=== PATIENT | male | born 1960 | race Caucasian/White ===

== ENCOUNTER 2023-07-19 23:15 | Inpatient (IN) | payer BC, SELFPAY ==
[2023-07-19 20:46] VITALS: BMI 34.6
[2023-07-19 20:47] VITALS: BP 181/127
[2023-07-19 20:58] VITALS: BP 158/129
[2023-07-19 21:25] LABS: % Basophils 0.7 % (0-2); % Immature Granulocytes 0.3 % (0-0.5); % Lymphocytes 6.3 % (20.5-51.1); % Monocytes 6.7 % (1.7-9.3); Absolute Basophils 0.1 10^3/uL (0-0.2); Absolute Eosinophils 0.2 10^3/uL (0-0.7); Absolute Lymphocytes 0.6 10^3/uL (1.2-3.4); Absolute Monocytes 0.7 10^3/uL (0.1-0.6); Absolute Neutrophils 8.2 10^3/uL (1.4-6.5); Hemoglobin 15.5 g/dL (13.0-18.0); Mean Corp Hgb Conc. 35.2 g/dL (33.0-37.0); Mean Platelet Volume 10.4 fL (7.4-10.4); Nucleated Red Blood Cells % 0 % (-); Platelet Count 203 10^3/uL (130-400); Red Cell Dist. Width 13.1 % (11.5-14.5); White Blood Cell Count 9.7 10^3/uL (4.8-10.8)
[2023-07-19] MEDS: ZOFRAN 4 MG IV (21:27)
[2023-07-19] MEDS: NSS 1000 IV (21:27)
[2023-07-19] MEDS: DILAUDID 1 MG IV (21:28)
[2023-07-19 21:44] LABS: Urine Albumin Trace (Neg - Trace); Urine Bilirubin Negative (Negative); Urine Character Clear (Clear); Urine Color Yellow; Urine Glucose Negative (Negative); Urine Ketone 1+ (Negative); Urine Leukocyte Negative (Negative); Urine Nitrite Negative (Negative); Urine Occult Blood 4+ (Negative); Urine Urobilinogen Negative (Neg - 1+)
[2023-07-19 22:00] VITALS: BP 183/107
[2023-07-19 22:02] LABS: Urine Squamous Cell 0-2 /LPF (Few)
[2023-07-19 22:03] LABS: Urine Red Blood Cell 0-2 /HPF (0-2); Urine White Cell 0-2 /HPF (0-5)
[2023-07-19 22:08] LABS: ALT (SGPT) 32 U/L (0-50); AST (SGOT) 35 U/L (17-59); Albumin 4.8 g/dl (3.5-5.0); Alkaline Phosphatase 64 U/L (38-126); Blood Urea Nitrogen 19 mg/dl (9-20); Calcium 9.9 mg/dl (8.4-10.2); Carbon Dioxide 25 mmol/L (22-30); Chloride 104 mmol/L (98-107); Estimated Creatinine Clearance 77 ml/min; Glucose 104 mg/dl (70-99); Potassium 4.5 mmol/L (3.5-5.1); Sodium 138 mmol/L (135-145); Total Bilirubin 1.4 mg/dl (0.2-1.3); Total Protein 7.4 g/dl (6.3-8.2); eGFR > 60.00
--- NOTE | 2023-07-19 22:22 | ED.GENMED ---
History of Present Illness
General
Chief Complaint: Abdominal Pain
Source: patient and spouse
Exam Limitations: none
Time Seen by Provider: 07/19/23 21:09
Nursing documentation reviewed up to this point in time: agreed with
Travel History
Have you had any contact with someone who has COVID-19?: No
Do you have any symptoms of coronavirus? Fever > 100 degrees, chills, cough, shortness of breath, sore throat, loss of taste or smell, muscle aches, or headache?: No
History of Present Illness
History of Present Illness:
63-year-old male with a past medical history of A-fib on Coumadin who presents to the emergency department for evaluation of abdominal/flank pain. Patient reports onset of symptoms this afternoon at around 4 PM and they have been constant since
that time. He reports a rather intense sharp pain in the left flank radiates towards the left lower abdomen. No clear triggering or relieving factors noted. He reports associated nausea but no vomiting. No change in his bowel movements�last
bowel movement was earlier today and formed, normal. He has not had any dysuria, hematuria, change in urinary frequency. He has not had any fevers or chills. He denies having had similar symptoms in the past. He had prior surgery for inguinal
hernia no other abdominal surgeries noted. Patient says that he is a lifetime non-smoker.
Past History
Past History
ED Past Medical History: Arrthythmia (afib for 10 yrs )
ED Past Surgical History: Other (2 ablations )
Social History
Tobacco: Non-smoker
Personal:
Living: with family
Employment: Employed
Review of Systems
Review of Systems
All Other Systems: ROS reviewed and negative except as documented in HPI and ROS
Constitutional: Denies fever or chills
Respiratory: Denies trouble breathing
Cardiac: Denies chest pain
ABD/GI: Reports abdominal pain and nausea; Denies vomiting, diarrhea or constipated
: Denies dysuria, frequency or flank pain
Musculoskeletal: Denies neck pain or back pain
Neurological: Denies headache, weakness or numbness
Phy Exam
Physical Exam
Physical Exam:
General: Awake, alert, oriented x3; appears uncomfortable
Head: Normocephalic, atraumatic
Eyes: Conjunctiva normal, sclera anicteric
Throat: Airway intact, handling secretions
Neck: Trachea midline, supple without meningismus
Lungs: Clear to auscultation bilaterally, no wheezing, rales, rhonchi
Heart: Regular rate and rhythm, no murmurs, gallops, or rubs
Abd: Soft, non distended, tender to palpation left lower quadrant with no palpable masses
Neuro: Cranial nerves grossly intact, speech fluid
Skin: no rash
Extremities: No edema in extremities, equal pulses in all extremities
Scores
Heart Failure Risk
Heart Failure Risk Score: Not Applicable
Heart Score for Chest Pain Patients
STEMI patient?: Not applicable
Withdrawal Assessment of Alcohol
Withdrawal Assessment Completed?: Not applicable
Course
Orders/Labs/Results
Orders:
Orders
07/19/23 21:10
CT Abd/pel Without Iv Or Oral Urgent
Comment:
Reason For Exam: left flank pain
07/19/23 21:11
0.9% Sodium Chloride 1000 ml [Nss] 1,000 ml IV BOLUS
HYDROmorphone [Dilaudid] 1 mg IV NOW STA
Ondansetron Injectable [Zofran] 4 mg IV NOW STA
07/19/23 21:21
Complete Blood Count/With Diff Urgent
Comprehensive Metabolic Panel Urgent
07/19/23 21:28
Urinalysis Reflex To Culture Urgent
Date Specimen was Collected: 07/19/23
Time Specimen was Collected: 21:25
Urine Microscopic Reflex Cult Urgent
07/19/23 22:16
Prothrombin Time Urgent
Abnormal Lab Results
07/19/23 07/19/23
21:21 21:28
Absolute Neuts (auto) 8.2 H 10^3/uL
(1.4-6.5)
Absolute Lymphs (auto) 0.6 L 10^3/uL
(1.2-3.4)
Absolute Monos (auto) 0.7 H 10^3/uL
(0.1-0.6)
Neutrophils % 84.0 H %
(42.2-75.2)
Lymphocytes % 6.3 L %
(20.5-51.1)
Glucose 104 H mg/dl
(70-99)
Total Bilirubin 1.4 H mg/dl
(0.2-1.3)
Urine Ketones 1+ A
(Negative)
Ur Occult Blood Reflex 4+ A
(Negative)
07/19/23 21:21
07/19/23 21:21
Vital Signs
Initial and Last Documented VS:
Initial Vital Signs
Temp Pulse Resp BP Pulse Ox
36.6 C 98 15 181/127 95
07/19/23 20:47 07/19/23 20:47 07/19/23 20:47 07/19/23 20:47 07/19/23 20:47
Last Documented Vital Signs
Temp Pulse Resp BP Pulse Ox
36.6 C 98 15 158/129 95
07/19/23 20:47 07/19/23 20:47 07/19/23 20:47 07/19/23 20:58 07/19/23 21:33
MDM/Problems Addressed
Differential Diagnosis Includes:
Diverticulitis, nephrolithiasis, UTI, constipation, AAA less likely in a non-smoker
MDM/Problems Addressed:
63-year-old male with history as documented presents for evaluation of abdominal/flank pain for the past few hours. Hypertensive but otherwise normal vitals. Exam as above. Plan to place an IV check labs including CBC and CMP, urinalysis. Will
check an INR. Will send for CT of the abdomen pelvis with concern for nephrolithiasis given clinical history. Will treat pain and nausea provide fluids. Monitor closely reassess after the above.
Labs reviewed: CBC unremarkable, CMP no clinically significant abnormalities�notably except creatinine. His urinalysis is negative for infection but does have positive blood. CT of the abdomen pelvis positive for nephrolithiasis max diameter 1.1
cm in the distal left ureter with hydronephrosis. Case discussed with urology. Will plan to admit to hospitalist service, urology on consult. Discussed with hospitalist for admission.
*Radiology
Radiology exam reviewed: radiology read reviewed
*Pulse Oximetry
Patient hypoxic: no
*Critical Care Note
Total Time (30-74mins, 75-104mins- exclusive of procedures): Not Applicable
Data Reviewed
Review of Other/Old Records Reveals: Labs and Records
Source: patient and spouse
Patient Management
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
Escalation/DeEscalation of care consider admission/obs:
Admission indicated
ED Attending Note
-
Portions of this chart may have been created with voice recognition software.� Occasional wrong word or��sound alike� substitutions may have occurred due to the inherent limitations of voice recognition software.
Discharge Plan
Departure
Patient Disposition: Admit
Date of Disposition: 07/19/23
Time of Disposition: 22:27
Admit to doctor: Paola
Presentation/result/management discussed w/ accepting MD/DO: Hospitalist
Discharge Problem:
Left nephrolithiasis
Prescriptions:
No Action
warfarin [Jantoven] 5 MG tablet
7.5 mg PO SUTUTHFRSA
B-complex with vitamin C 1 EACH tablet
1 tab PO DAILY
carvedilol 25 mg Tablet
25 mg PO BID
tamsulosin 0.4 mg Capsule
0.4 mg PO DAILY
allopurinol 300 mg Tablet
300 mg PO DAILY
finasteride 5 mg Tablet
5 mg PO DAILY
Referrals:
Calli Mejía MD [Family Provider] -
Interventions
Interventions:
*Risk Screen - Suicide Last Done: 07/19/23 20:47
*General Assessment Last Done: 07/19/23 20:47
*Neglect/Abuse Screening Last Done: 07/19/23 20:47
BX-Yqocmb-Fopsfdjkbf Assessment Last Done: 07/19/23 21:08
Discharge Date and Time
Print Language: SETSWANA
--- NOTE | 2023-07-19 22:44 | HPS.HSE ---
Family Physician
-
Family Physician: Calli Mejía
Chief Complaint
-
Abdominal pain
History of Present Illness
This is a 63-year-old male with past medical history significant for atrial fibrillation on anticoagulation with Coumadin, BPH/prostate CA on finasteride and tamsulosin, gout, hypertension, who presents to the emergency department with left-sided
back pain that started 4 hours prior to presentation.
Patient reports sudden onset of crampy left-sided pain that radiated from the left back to the left lower quadrant and then ultimately to the left groin. Appears to be worse with urination. He denies any hematuria. He denies any nausea or
vomiting. Denies fevers or chills. Patient denies any previous history of kidney stones or family history of kidney stones.
On arrival in the emergency department he was afebrile, hypertensive but otherwise hemodynamically stable and in mild distress secondary to his discomfort. Oxygen saturation was 95% on room air. Is CBC was unremarkable with a normal white count
hemoglobin and platelet count which were also normal creatinine of secondary change from baseline. A CT of the abdomen pelvis revealed an obstructing 1.1 cm stone in the left kidney without hydronephrosis. Urology consulted.
Medical History
Past Medical History
Past Medical History: Reports HTN
Additional Past Medical History:
Gout
Atrial fibrillation
BPH
DOE on CPAP
Past Surgical History: Reports None
Social History
Tobacco: Non-smoker
Alcohol: Occasional
Drug: None
Personal:
Living: With Family
Employment: Employed
Family History
Family History: Not pertinent
Allergies / Home Medications
Allergies reflects when Allergies were last updated in [facility].
Home Medications with original date entered in [facility]
Allergy/Medication List:
Allergies
Allergy/AdvReac Type Severity Reaction Status Date / Time
NKA - No Known Allergies Allergy Unknown Uncoded 10/13/15 14:36
Home Medications
warfarin 5 mg tablet (Jantoven) 7.5 mg PO SUTUTHFRSA 09/07/13
B-complex with vitamin C 1 tab PO DAILY 09/08/13
allopurinol 300 mg tablet 300 mg PO DAILY 07/19/23
carvedilol 25 mg tablet 25 mg PO BID 07/19/23
finasteride 5 mg tablet 5 mg PO DAILY 07/19/23
tamsulosin 0.4 mg capsule 0.4 mg PO DAILY 07/19/23
Review of Systems
-
History Source: Patient
Constitutional: Reports No Symptoms
EENT: Reports No Symptoms
Respiratory: Reports No Symptoms
Cardiac: Reports No Symptoms
Abdomen/GI: Reports Abdominal Pain
: Reports Dysuria and Flank Pain
Musculoskeletal: Reports No Symptoms
Skin: Reports No Symptoms
Neurological: Reports No Symptoms
Endocrine: Reports No Symptoms
Hematologic/Lymphatic: Reports No Symptoms
Psych: Reports No Symptoms
Physical Exam
Vital Signs
Vital Signs
Temp Pulse Resp BP Pulse Ox
97.9 F 98 15 158/129 95
07/19/23 20:47 07/19/23 20:47 07/19/23 20:47 07/19/23 20:58 07/19/23 21:33
Physical Exam
General: Well Developed, Well Nourished and Pain
HEENT: NormoCephalic, Anicteric, Moist mucous membranes and Atraumatic
Respiratory: Clear
Cardiac: S1/S2 and Regular Rhythm
Breast: Deferred by me
GI: Soft, Non Tender, Normal Bowel Sounds and Distended
Rectal: Deferred by Provider
Genito-urinary: Costovertebral angle tend
Musculoskeletal: No Clubbing, No Cyanosis and No Edema
Skin: Warm and Dry
Neuro: AO x 3
Hematologic/Lymphatic: No Lymphadenopathy
Psych: Calm
Laboratory Results
-
07/19/23 21:21
07/19/23 21:21
Laboratory Results
Total Bilirubin 1.4 mg/dl (0.2-1.3) H 07/19/23 21:21
AST 35 U/L (17-59) 07/19/23 21:21
ALT 32 U/L (0-50) 07/19/23 21:21
Alkaline Phosphatase 64 U/L (38-126) 07/19/23 21:21
Data Reviewed
-
CT Scan: Image Personally Visualized and interpreted
Lab Data: Labs Reviewed by me
Old Records: Reviewed
Impression/Plan
-
IMPRESSION:
63 y.o male with h/o gout, htn, atrial fibrillation, doe on cpap coming in with left sided flank pain and found to have a 1.1 cm obstructing left kidney stone. No hydronephrosis. U/a with hematuria but otherwise unremarkable. Non-toxic appearance
and patient does show any signs of infection.
PLAN:
1. Nephrolithiasis
- admit to med/surg
- already taking tamsulosin
- pain control with toradol and dilaudid prn
- gentle hydration
- strain urine
- continue ac for now, check inr in am
- urology consult, stated plan for OR on Friday
2. AFIB - currently in afib, rate controlled.
- continue carvedilol 25 bid
- warfarin 10mg M-F and 7.5mg sat/sun. Determine if correction needed per urology
3. HTN - hypertensive here partly due to pain
- pain control
- continue carvedilol
- prn hydralazine
4. DOE
- CPAP hs
DVT PPX -on warfarin
Full code
[2023-07-19 22:53] LABS: INR 2.34; PT 25.5 Sec (11.4-14.6)
[2023-07-19 23:00] VITALS: BP 177/108
[2023-07-19] MEDS: TORADOL 15 MG IV (23:25)
[2023-07-19] MEDS: COUMADIN 7.5 MG PO (23:37)
[2023-07-19 23:56] VITALS: BP 159/103; BMI 34.0
[2023-07-20 00:02] VITALS: BMI 34.0
--- NOTE | 2023-07-20 00:32 | PTCARENOTE ---
Pt received from ER [id number] able to make his needs known.Denies c/o tenderness on his left side of abdomen & received pain meds prior to coming up to floor. Pt explained about using the urinal to void & urine will be strained as needed. Pt call golden
in reach. Plan of care continued.
[2023-07-20 00:39] VITALS: BP 138/98
[2023-07-20 01:57] VITALS: PULSE 94
--- NOTE | 2023-07-20 06:58 | CONS.URO ---
Consultation
-
Date/Time Consultation Performed: 07/20/23 0640
Performing Provider: Shan
Reason for Consultation: left ureteral stone
Medical History
History of Present Illness
63-year-old male with past medical history significant for atrial fibrillation on anticoagulation with Coumadin, BPH/prostate CA on finasteride and tamsulosin, gout, hypertension, who presents to the emergency department with left-sided back pain
CT demonstrates a ~ 10 mm distal left ureteral stone causing ureterectasis; bilateral other stones also evident
denies prior stone hx
Past Medical History
Past Medical History: Other (Gout Atrial fibrillation ?prostate cancer? NAA on CPAP)
Past Surgical History: None
Family History
Family History: Reviewed & Not Pertinent
Allergies/Home Medications
Allergies
Allergy/AdvReac Type Severity Reaction Status Date / Time
NKA - No Known Allergies Allergy Unknown Uncoded 01/03/15 14:36
Home Medications
�Medication �Instructions �Recorded �Confirmed �Type
warfarin 5 mg tablet (Jantoven) 7.5 mg PO SUTUTHFRSA 09/07/13 07/19/23 History
B-complex with vitamin C 1 tab PO DAILY 09/08/13 07/19/23 History
allopurinol 300 mg tablet 300 mg PO DAILY 07/19/23 07/19/23 History
carvedilol 25 mg tablet 25 mg PO BID 07/19/23 07/19/23 History
finasteride 5 mg tablet 5 mg PO DAILY 07/19/23 07/19/23 History
tamsulosin 0.4 mg capsule 0.4 mg PO DAILY 07/19/23 07/19/23 History
Physical Exam
Vital Signs
Vital Signs
Temp Pulse Resp BP Pulse Ox
98.1 F 94 18 138/98 96
07/19/23 23:56 07/19/23 23:56 07/19/23 23:56 07/20/23 00:39 07/19/23 23:56
Physical Exam
General: Well Developed (asleep with CPAP), Well Nourished and No Apparent Distress
HEENT: Normocephalic
GI: Soft and Non Distended
Genito-urinary: No Costovertebral Tend
Skin: Warm
Neuro: Awake and Alert
Psych: Calm and Intact Judgement
Assessment / Plan
-
Left ureteral stone: distal, ~ 10 mm, partially obstructing; bilateral nephrolithiasis
no evidence of infection or renal compromise
Patient was offerred surgical intervention tomorrow [as he does not meet emergency criteria] or to be discharged then to return for outpatient stone removal -- he opts for latter
Data Reviewed
-
CT Scan: Image personally visualized and interpreted
Lab Data: Labs Reviewed
Old Records: Reviewed
[2023-07-20 07:20] VITALS: BP 149/109
[2023-07-20 07:49] LABS: Hematocrit 39.8 % (39.0-52.0); Hemoglobin 13.5 g/dL (13.0-18.0); Mean Corp Hgb Conc. 33.9 g/dL (33.0-37.0); Mean Corpuscular Hgb 31.1 pg (27.0-31.0); Mean Corpuscular Volume 91.7 fL (80.0-94.0); Mean Platelet Volume 10.4 fL (7.4-10.4); Platelet Count 161 10^3/uL (130-400); Red Blood Cell Count 4.34 10^6/uL (4.70-6.10); Red Cell Dist. Width 12.9 % (11.5-14.5); White Blood Cell Count 6.5 10^3/uL (4.8-10.8)
[2023-07-20] MEDS: COREG 25 MG PO (07:57)
[2023-07-20] MEDS: FLOMAX 0.400000000000000022 MG PO (07:57)
[2023-07-20] MEDS: B COMPLEX w/VITAMIN C 1 CAPLET PO (07:57)
[2023-07-20] MEDS: ZYLOPRIM 300 MG PO (07:57)
[2023-07-20] MEDS: PROSCAR 5 MG PO (07:57)
[2023-07-20 07:58] LABS: INR 3.27; PT 33.3 Sec (11.4-14.6)
[2023-07-20 07:59] LABS: APTT 40.8 Sec (23.4-35.0)
[2023-07-20 08:02] LABS: Blood Urea Nitrogen 18 mg/dl (9-20); Calcium 8.8 mg/dl (8.4-10.2); Carbon Dioxide 26 mmol/L (22-30); Chloride 108 mmol/L (98-107); Estimated Creatinine Clearance 83 ml/min; Glucose 94 mg/dl (70-99); Sodium 137 mmol/L (135-145); eGFR > 60.00
[2023-07-20 11:10] VITALS: BP 155/107
--- NOTE | 2023-07-20 13:11 | W.PN.HOSP.TC ---
Today's Communication/Plan
-
Discharge today
Assessment / Plan
Assessment / Plan
Physical Exam
General: Well Developed, Well Nourished and Pain
HEENT: Normocephalic, Moist mucous membranes and Atraumatic
Respiratory: Clear to Auscultation Bilaterally
Cardiac: S1/S2 and Regular Rhythm
GI: Soft, Non Tender, Normal Bowel Sounds and Distended
Musculoskeletal: No Cyanosis and No Edema
Skin: Warm and Dry
Neuro: AAO x 3
Psych: Calm
Assessment/Plan
63 y.o male with h/o gout, htn, atrial fibrillation, doe on cpap coming in with left sided flank pain and found to have a 1.1 cm obstructing left kidney stone. No hydronephrosis. U/a with hematuria but otherwise unremarkable. Non-toxic appearance
and patient does show any signs of infection.
#Nephrolithiasis: Left ureteral stone: distal, ~ 10 mm, partially obstructing; bilateral nephrolithiasis
- already taking tamsulosin -- continue
- pain control with NSAIDs and dilaudid prn
- strain urine
- Continue Coumadin
- Urology consulted -- urology mentioned that it is okay for patient to go home today and then return for an outpatient ureteroscopy
- Okay to discharge the patient today
#AFIB - currently in afib, rate controlled.
- continue carvedilol 25 bid
- Continue warfarin 10mg M-F and 7.5mg sat/sun.
#HTN - hypertensive here partly due to pain
- pain control
- continue carvedilol
- prn hydralazine
#DOE
- CPAP hs
DVT PPX -on warfarin
Full code
More than 30 minutes spent in discharge including
Final examination of the patient
Summarizing hospital stay
Instructions for continuing care to all relevant caregivers
Preparation of discharge records, prescriptions, and referral forms
Total time spent (in minutes): 38
Anticipated Discharge: Today
Subjective/Interval History
-
Date of Service: July 20, 2023
Patient was seen and examined. He denied any pain, fever, nausea, vomiting or any other complaints.
Objective Data
-
Labs:
Laboratory Results
07/20/23
07:33
WBC 6.5
Hgb 13.5
Hct 39.8
Plt Count 161 D
PT 33.3 H
INR 3.27
APTT 40.8 H
Sodium 137
Potassium 4.0
Chloride 108 H
Carbon Dioxide 26
BUN 18
Creatinine 1.1
Glucose 94
Calcium 8.8
Vital Signs:
Vital Signs
Temp Pulse Resp BP Pulse Ox
97.8 F 71 18 155/107 94
07/20/23 11:10 07/20/23 11:10 07/20/23 11:10 07/20/23 11:10 07/20/23 11:10
I&O
07/19/23 07/20/23 07/21/23
06:59 06:59 06:59
Intake Total 960 / 960
Balance 960 / 960
--- NOTE | 2023-07-20 14:17 | W.DS.TRANS ---
Addendum entered and electronically signed by Garry Navarro MD 07/20/23 16:10:
Tramadol is a new medication as well.
Original Note:
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
-
Discharge Instructions:
Discharge Diagnosis/Procedures Left Ureteral Stone; bilateral nephrolithiasis
Nephrolithiasis: Left ureteral stone: distal, ~
10 mm, partially obstructing; bilateral
nephrolithiasis
Atrial Fibrillation
Hypertension
Obstructive Sleep Apnea
Diet 2 Gram Sodium,Low Sodium
Instructions:
Stand-Alone Forms:
Changes to Home Medications: No
Discharge Medications:
DC Medications w/original date entered in [employer]
warfarin 5 mg tablet (Jantoven) 7.5 mg PO SUTUTHFRSA 09/07/13
B-complex with vitamin C 1 tab PO DAILY 09/08/13
allopurinol 300 mg tablet 300 mg PO DAILY 07/19/23
carvedilol 25 mg tablet 25 mg PO BID 07/19/23
finasteride 5 mg tablet 5 mg PO DAILY 07/19/23
tamsulosin 0.4 mg capsule 0.4 mg PO DAILY 07/19/23
Home Medication Changes
Pending Results: No
Total time spent discharging patient (in min): 38
--- NOTE | 2023-07-20 14:23 | CM ---
met with patient at bedside.he lives with his in 2 story house with 2-3 steps to enter.his bed and bath is on the second floor,he amb i and is i with his adl.his pcp chiqui anderson and he uses [facility] [address] in [place] for his
meds.he hs no dmr,has never had a vn or been to ip rehab.
patient with a hx of afib on coumadin,prostate cancer,doe on cpap is adm with left sided back pain.he has a left kidney stone he was eval by urology and he is stable to dc home with op uretroscopy to be scheduled.Plan:home with no needs.
[2023-07-20 14:55] VITALS: BP 143/90
--- NOTE | 2023-07-23 01:35 | W.DCSUMMARY ---
Discharge Summary
Discharge Data
Date of Admission: 07/19/23
Date of Discharge: 07/20/23
Total time spent discharging patient (in min): 38
-
Pending Results: No
Hospital Course
63-year-old male with past medical history significant for atrial fibrillation on anticoagulation with Coumadin, benign prostatic hyperplasia/prostate cancer on finasteride and tamsulosin, gout, hypertension, who presented to the emergency
department with left-sided back pain that started 4 hours prior to presentation. Patient reported sudden onset of crampy left-sided pain that radiated from the left back to the left lower quadrant and then ultimately to the left groin. On arrival to
the emergency department he was afebrile, hypertensive but otherwise hemodynamically stable and in mild distress secondary to his discomfort. Oxygen saturation was 95% on room air. A CT of the abdomen pelvis revealed an obstructing 1.1 cm stone in
the left kidney without hydronephrosis. Urology was consulted. Patient was noted not to have any infection of renal insufficiency from the stone. Urology offered patient surgical intervention the next day or get discharged, and then return for
outpatient stone removal -- patient expressed his wish to get discharged and return for outpatient stone removal.
Discharge Plan
-
Patient Disposition: Home (Routine Discharge)
Discharge Diagnosis/Procedures: Left Ureteral Stone; bilateral nephrolithiasis
Nephrolithiasis: Left ureteral stone: distal, ~ 10 mm, partially obstructing; bilateral nephrolithiasis
Atrial Fibrillation
Hypertension
Obstructive Sleep Apnea
Condition: Good
Diet: Low Sodium and 2 Gram Sodium
Activity Restrictions/Additional Instructions:
YOU NEED TO HAVE YOUR INR RE-CHECKED TOMORROW JULY 21, 2023, YOUR INR ON JULY 20, 2023 WAS 3.27. HAVE YOUR PRIMARY CARE PHYSICIAN REVIEW YOUR COUMADIN DOSING AND ADJUST NEEDED BASED ON YOUR INR.
Referrals:
Surinder Torrez MD [Active] - (call office Friday AM to schedule 'Left Ureteroscopy, Laser Lithotripsy and Stenting' this week)
Calli Mejía MD [Family Provider] - in one to two days
Additional Discharge Medication Instructions: Tramadol is a new medication.
Prescriptions:
New
tramadol 25 mg tablet
25 mg PO Q6H PRN (Reason: severe pain) Qty: 10 0RF
Continued
warfarin [Jantoven] 5 MG tablet
7.5 mg PO SUTUTHFRSA
B-complex with vitamin C 1 EACH tablet
1 tab PO DAILY
carvedilol 25 mg Tablet
25 mg PO BID
tamsulosin 0.4 mg Capsule
0.4 mg PO DAILY
allopurinol 300 mg Tablet
300 mg PO DAILY
finasteride 5 mg Tablet
5 mg PO DAILY
Discharge Orders:
Discharge Patient (As Directed); Ordered 07/20/23
Ordered By: Garry Navarro
Discharge Date and Time
Discharge Date/Time: 07/20/23 15:39
Print Language: CANADIAN
== END 2023-07-20 15:39 | disposition home or self-care (01) | DRG 694 ==
LOC: 4 EAST ACU 23:15
PROVIDERS: ADMITTING PHYSICIAN Internal Medicine; ATTENDING PHYSICIAN Hospitalist; CONSULT PHYSICIAN Specialist; EMERGENCY PHYSICIAN Emergency Medicine; FAMILY PHYSICIAN Internal Medicine Cardiovascular Disease
PROC: 5A09357 Assistance with Respiratory Ventilation, Less than 24 Consecutive Hours, Continuous Positive Airway Pressure (ICD-10-PCS; 2023-07-20)
DX: N20.2 Calculus of kidney with calculus of ureter (principal); I48.91 Unspecified atrial fibrillation; I10 Essential (primary) hypertension; N40.0 Benign prostatic hyperplasia without lower urinary tract symptoms; M10.9 Gout, unspecified; G47.33 Obstructive sleep apnea (adult) (pediatric); Z79.01 Long term (current) use of anticoagulants; Z87.442 Personal history of urinary calculi; Z85.46 Personal history of malignant neoplasm of prostate
CPT/HCPCS: 74176; 80048; 80053; 81003; 81015; 85025; 85027; 85610; 85730; 94660; 96361; 96374; 96375; 99284

== ENCOUNTER 2023-07-30 06:36 | Day surgery (SDC) | payer BC, SELFPAY ==
[2023-07-30] VITALS (14 sets, daily range): BP systolic 134–177; BP diastolic 68–127; BMI 34.2
[2023-07-30] MEDS: NORMOSOL-R 1000 IV (09:52)
--- NOTE | 2023-07-30 09:56 | PTCARENOTE ---
Report given to Traci PHAM.
[2023-07-30] MEDS: Pyridium 200 MG PO (12:13)
[2023-07-30] MEDS: DILAUDID 0.5 MG IV (14:01)
[2023-07-30] MEDS: APRESOLINE 5 MG IV (14:20)
== END 2023-07-30 14:56 | disposition home or self-care (01) ==
LOC: SDS 06:36
PROVIDERS: ATTENDING PHYSICIAN Specialist
DX: N20.1 Calculus of ureter (principal)
CPT/HCPCS: 52356; 52354; 74018; 76000; 82365; 93005; C1894; C2617

== ENCOUNTER → 2024-07-15 16:39 | Outpatient (REF) | payer BC, SELFPAY | LOC: MRI 3T 16:39 | PROVIDERS: ATTENDING PHYSICIAN Radiology Radiation Oncology; FAMILY PHYSICIAN Family Medicine | DX: C61 Malignant neoplasm of prostate (principal) | CPT/HCPCS: 72197; A9575 ==

== ENCOUNTER → 2024-09-09 13:40 | Outpatient (REF) | payer BC, SELFPAY | LOC: RCS 13:40 | PROVIDERS: ATTENDING PHYSICIAN Nurse Practitioner; FAMILY PHYSICIAN Family Medicine | DX: E78.00 Pure hypercholesterolemia, unspecified (principal); I34.0 Nonrheumatic mitral (valve) insufficiency | CPT/HCPCS: 93306 ==